=== PATIENT | female | born 1980 | race Caucasian/White ===

== ENCOUNTER 2017-07-11 20:10 | Emergency (ER) | payer SELFPAY | END 2017-07-11 21:00 | disposition left against medical advice (07) | LOC: ED 20:10 | DX: R51 Headache (principal); Z53.21 Procedure and treatment not carried out due to patient leaving prior to being seen by health care provider ==

== ENCOUNTER 2017-07-23 21:33 | Emergency (ER) | payer SELFPAY ==
[2017-07-23] MEDS ORDERED: TYLENOL ONE (21:49)
[2017-07-23] MEDS ORDERED: TYLENOL PO ONE (21:54)
--- NOTE | 2017-07-23 23:21 | XRay Report ---
FINAL REPORT PROCEDURE: Right hand. TECHNIQUE: Three views. HISTORY: Right hand injury, pain and swelling. COMPARISON: No prior studies are available for comparison. FINDINGS: The bones appear intact without fracture or dislocation. The joint spaces appear normal. The soft tissues are unremarkable. IMPRESSION: Normal study.
[2017-07-24] MEDS ORDERED: ULTRAM PO ONE (02:35)
--- NOTE | 2017-07-24 02:35 | Emergency Department Report ---
<JERRI HENRY - Last Filed: 07/24/17 02:30> ED Upper Extremity Inj HPI - General Chief Complaint: Extremity Injury, Upper Stated Complaint: POSS RT HAND BROKEN Time Seen by Provider: 07/24/17 02:27 Source: patient Mode of arrival: Ambulatory Limitations: No Limitations - History of Present Illness Initial Comments: This is a 37-year-old female that presents to the ED c/o right hand pain and swelling. Patient stated last night around 2129 patient slammed the door onto her right hand. Patient denies any numbness, tingling, joint redness, fever, chills, headache, cp, or sob. Patient associated symptoms include pain which is described as aching with level of 10/10. Patient denies any allergies. 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 MD Complaint: Injury to:: right, hand -: Gradual, days(s) (1) Other Extremity Injury: Hand: Right Other Injuries: none Place: home Severity scale (0 -10): 10 Improves With: none Worsens With: none Context: crush Associated Symptoms: denies other symptoms. denies: weakness, numbness, neck pain, suspects foreign body, nausea/vomiting, heard/felt popping sensat - Related Data Previous Rx's Medication Instructions Recorded Last Taken Type Ibuprofen [Motrin 600 MG tab] 600 mg PO Q8H PRN #30 tablet 07/24/17 Unknown Rx Allergies Allergy/AdvReac Type Severity Reaction Status Date / Time No Known Allergies Allergy Verified 07/24/17 02:04 ED Review of Systems ROS: Stated complaint: POSS RT HAND BROKEN Other details as noted in HPI Constitutional: denies: chills, fever Eyes: denies: eye pain, eye discharge, vision change ENT: denies: ear pain, throat pain Respiratory: denies: cough, shortness of breath, wheezing Cardiovascular: denies: chest pain, palpitations Endocrine: no symptoms reported Gastrointestinal: denies: abdominal pain, nausea, diarrhea Genitourinary: denies: urgency, dysuria, discharge Musculoskeletal: denies: back pain, joint swelling, arthralgia Skin: denies: rash, lesions Neurological: denies: headache, weakness, paresthesias Psychiatric: denies: anxiety, depression Hematological/Lymphatic: denies: easy bleeding, easy bruising ED Past Medical Hx - Past Medical History Previous Medical History?: Yes Hx Asthma: Yes Additional medical history: Pancreatitis - Surgical History Past Surgical History?: Yes Hx Cholecystectomy: Yes Additional Surgical History: Tubal - Social History Smoking Status: Current Every Day Smoker Substance Use Type: Alcohol - Medications Home Medications: Home Medications Medication Instructions Recorded Confirmed Last Taken Type Ibuprofen [Motrin 600 MG tab] 600 mg PO Q8H PRN #30 tablet 07/24/17 Unknown Rx ED Physical Exam - General Limitations: No Limitations General appearance: alert, in no apparent distress - Head Head exam: Present: atraumatic, normocephalic, normal inspection - Eye Eye exam: Present: normal appearance, PERRL, EOMI. Absent: scleral icterus, conjunctival injection, nystagmus, periorbital swelling, periorbital tenderness - ENT ENT exam: Present: normal exam, normal orophraynx, mucous membranes moist, TM's normal bilaterally, normal external ear exam - Neck Neck exam: Present: normal inspection, full ROM. Absent: tenderness, meningismus, lymphadenopathy, thyromegaly - Respiratory Respiratory exam: Present: normal lung sounds bilaterally. Absent: respiratory distress, wheezes, rales, rhonchi, stridor, chest wall tenderness, accessory muscle use, decreased breath sounds, prolonged expiratory - Cardiovascular Cardiovascular Exam: Present: regular rate, normal rhythm, normal heart sounds. Absent: bradycardia, tachycardia, irregular rhythm, systolic murmur, diastolic murmur, rubs, gallop - GI/Abdominal GI/Abdominal exam: Present: soft, normal bowel sounds. Absent: distended, tenderness, guarding, rebound, rigid, diminished bowel sounds - Rectal Rectal exam: Present: deferred - Extremities Exam Extremities exam: Present: normal inspection, full ROM, tenderness, normal capillary refill. Absent: pedal edema, joint swelling, calf tenderness - Expanded Upper Extremity Exam Right General: Present: normal inspection Shoulder Exam: Present: normal inspection, full ROM. Absent: tenderness, swelling, ecchymosis Upper Arm exam: Present: normal inspection, full ROM. Absent: tenderness, swelling Elbow exam: Present: normal inspection, full ROM. Absent: tenderness, swelling Forearm Wrist exam: Present: normal inspection, full ROM. Absent: tenderness, swelling Hand Wrist exam: Present: normal inspection, full ROM, tenderness, swelling. Absent: abrasion, laceration, ecchymosis, deformity, crepidus, dislocation, erythema, amputation, nail avulsion, subungual hematoma Neuro motor exam: Present: wrist extension intact, thumb opposition intact, thumb IP flexion intact, thumb adduction intact, fingers 2-5 abduction intact Neurosensory exam: Present: 2-point discrimination, radial nerve intact, ulnar nerve intact, median nerve intact Vascular: Present: vascular compromise, normal capillary refill, radial pulse, brachial pulse, ulnar pulse - Back Exam Back exam: Present: normal inspection, full ROM. Absent: tenderness, CVA tenderness (R), CVA tenderness (L), muscle spasm, paraspinal tenderness, vertebral tenderness, rash noted - Neurological Exam Neurological exam: Present: alert, oriented X3, CN II-XII intact, normal gait, reflexes normal - Psychiatric Psychiatric exam: Present: normal affect, normal mood - Skin Skin exam: Present: warm, dry, intact, normal color. Absent: rash ED Course Vital Signs 07/23/17 07/24/17 07/24/17 21:45 01:53 02:05 Temperature 98.5 F 98.3 F Pulse Rate 121 H 79 80 Respiratory 20 18 20 Rate Blood Pressure 98/60 Blood Pressure 137/95 127/97 [Right] O2 Sat by Pulse 99 100 98 Oximetry 07/24/17 03:42 Temperature Pulse Rate 73 Respiratory 16 Rate Blood Pressure Blood Pressure 110/67 [Right] O2 Sat by Pulse 98 Oximetry - Reevaluation(s) Reevaluation #1: 07/24/17 02:37 Patient is speaking in full sentences with no signs of distress noted. ED Medical Decision Making - Medical Decision Making 37-year-old female that presents with contusion to right hand. pt was examined by myself. pt is stable. pr received Ice to extermity. pt received ultram in the ed. was instructed not to operate any machinery after d/c due to sedation/ drowsiness of ultram. pts stated will drive the pt home. Xray has been obtained with no fracture or dislocation noted. Dictated by radiologist. Pt was notified of xray findings with no questions. Pt was instrcuted to follow-up with orthopedic in 3-5 days or if symptoms such as numbness, tingling, or worsening of symptoms return to the emergency department as soon as possible. Pt was instructed to rest, elevate and ice extremity. Critical care attestation.: If time is entered above; I have spent that time in minutes in the direct care of this critically ill patient, excluding procedure time. ED Disposition Disposition: DC-01 TO HOME OR SELFCARE Is pt being admited?: No Does the pt Need Aspirin: No Condition: Stable Instructions: Ibuprofen (By mouth), Contusion in Adults (ED), RICE Therapy (ED) Additional Instructions: Follow-up with orthopedic in 3-5 days or if symptoms such as numbness, tingling , or worsening of symptoms return to the emergency department as soon as possible. Rest, elevate, and ice extremity. Prescriptions: Ibuprofen [Motrin 600 MG tab] 600 mg PO Q8H PRN #30 tablet PRN Reason: Pain Referrals: PRIMARY CAREMD [Primary Care Provider] - 3-5 Days BENITO HALL MD [Staff Physician] - 3-5 Days [facility] [Outside] - 3-5 Days [facility] [Outside] - 3-5 Days Forms: Work/School Release Form(ED) <LAMAR GAYLE - Last Filed: 07/31/17 16:30> ED Medical Decision Making - Medical Decision Making I am administratively signing this chart for a provider who . I did not see this patient.
[2017-07-24 03:42] VITALS: BP 110/67
== END 2017-07-24 03:43 | disposition home or self-care (01) ==
LOC: ED 21:33
DX: J45.909 Unspecified asthma, uncomplicated (principal); F17.200 Nicotine dependence, unspecified, uncomplicated; W22.8XXA Striking against or struck by other objects, initial encounter; Y93.9 Activity, unspecified; Y92.9 Unspecified place or not applicable; Y99.9 Unspecified external cause status